=== PATIENT | female | born 1955 | race Two or more races ===

== ENCOUNTER → 2017-07-07 | Outpatient (CLI) | payer OTHER ==
[~2017-07-07] MED LIST: FOLI-17 PO; LISI1TAB3 PO; METH2.5T PO
== END | disposition home or self-care (01) ==
LOC: CFH 14:57
PROVIDERS: ATTEND Obstetrics & Gynecology
DX: Z12.31 Encounter for screening mammogram for malignant neoplasm of breast (principal)
CPT/HCPCS: G0202

== ENCOUNTER 2017-12-22 11:59 | Emergency (ER) | payer OTHER ==
[~2017-12-22] VITALS: Ht 157.5 cm; Wt 55.1 kg
[2017-12-22 13:47] LABS: BASOPHILS # (AUTO) 0.03 x10^3/uL (0-0.1); BASOPHILS % (AUTO) 0 % (0-1); EOSINOPHILS # (AUTO) 0.01 x10^3/uL (0-0.4); EOSINOPHILS % (AUTO) 0 % (1-7); LYMPHOCYTES # (AUTO) 1.01 x10^3/uL (1-3.4); LYMPHOCYTES % (AUTO) 10 % (22-44); MD NO; MEAN CORPUSCULAR HEMOGLOBIN 32.2 pg (27.0-34.8); MEAN CORPUSCULAR HGB CONC 33.8 g/dL (32.4-35.8); MEAN CORPUSCULAR VOLUME 95.1 fL (80-100); MEAN PLATELET VOLUME 8.3 fL (7.4-10.4); MONOCYTES # (AUTO) 0.28 x10^3/uL (0.2-0.8); MONOCYTES % (AUTO) 3 % (2-9); NEUTROPHILS # (AUTO) 9.33 x10^3/uL (1.8-6.8); NEUTROPHILS % (AUTO) 88 % (42-75); PLATELET COUNT 228 x10^3/uL (130-400); RED BLOOD COUNT 4.58 x10^6/uL (3.82-5.3); RED CELL DISTRIBUTION WIDTH 13.5 % (9.6-15.2)
[2017-12-22] MEDS ORDERED: MECLIZINE CHEWABLE 25 MG TAB PO ONE (14:00)
[2017-12-22] MEDS ORDERED: ONDANSETRON ODT 4 MG PO ONE (14:00)
[2017-12-22 14:05] LABS: ALBUMIN 4.2 g/dL (3.4-5.0); ANION GAP 7 mmol/L (5-15); CHLORIDE 106 mmol/L (98-107); CREATININE 0.58 mg/dL (0.55-1.02)
[2017-12-22] MEDS ORDERED: MECLIZINE CHEWABLE 25 MG TAB ONE (14:05)
[2017-12-22] MEDS ORDERED: ONDANSETRON ODT 4 MG ONE (14:05)
[2017-12-22 14:09] LABS: TROPONIN I < 0.015 ng/mL (0.000-0.045)
[2017-12-22] MEDS ORDERED: POTASSIUM CHLORIDE 20 MEQ TAB.ER.PRT PO ONE (14:30)
[2017-12-22] MEDS ORDERED: POTASSIUM CHLORIDE 20 MEQ TAB.ER.PRT ONE (15:27)
[2017-12-22] MEDS ORDERED: HYDROmorphone 2 MG/ML, 1ML ONE (15:28)
[2017-12-22 16:22] LABS: MICROSCOPIC NOT IND
[2017-12-22 16:24] LABS: CULTURE INDICATED? NO
[2017-12-22 17:14] VITALS: BP 125/70
== END 2017-12-22 17:20 | disposition home or self-care (01) ==
LOC: ED 17:15
DX: R42 Dizziness and giddiness (principal); I10 Essential (primary) hypertension; D72.828 Other elevated white blood cell count; E87.6 Hypokalemia; M06.9 Rheumatoid arthritis, unspecified; Z90.710 Acquired absence of both cervix and uterus
CPT/HCPCS: 36415; 70450; 80048; 81003; 82040; 84484; 85025; 93005; 99285; Q0162

== ENCOUNTER → 2020-08-20 | Outpatient (CLI) | payer BC ==
[~2020-08-20] MED LIST changes: +LISI1TAB23 PO; -LISI1TAB3 PO
== END | disposition home or self-care (01) ==
LOC: CFH 07:55
PROVIDERS: ATTEND Obstetrics & Gynecology
DX: Z12.31 Encounter for screening mammogram for malignant neoplasm of breast (principal)
CPT/HCPCS: 77063; 77067